=== PATIENT | female | born 1965 | race Caucasian/White ===

== ENCOUNTER 2020-11-04 00:34 | Emergency (ER) | payer OTHER, MEDICAID ==
[~2020-11-04] VITALS: Ht 165.1 cm; Wt 113.4 kg
[~2020-11-04 00:34] MED LIST: OMEP20CA15 PO
[2020-11-04 00:35] VITALS: BP_SYST 145
--- NOTE | 2020-11-04 00:35 | NUR ---
Came in ER ambulatory accompanied by [facility] officer this 55 year old female, [id number], breathing spontaneously at room air, not in distress noted, for medcal clearance, vital signs stable
--- NOTE | 2020-11-04 00:41 | NUR ---
Seen and examined by Dr. Phelps, ER Attending and medcally cleared
[2020-11-04 00:56] VITALS: BP_SYST 145
--- NOTE | 2020-11-04 00:56 | NUR ---
Patient given written and verbal discharge instructions and verbalizes understanding. Patient in stable condition. ID arm band removed. no Rx of given. Patient educated to follow up with PMD. Pain Scale 0/10. Opportunity for questions provided and answered. Medically cleared and accompanied by [facility] officer
== END 2020-11-04 00:56 | disposition home or self-care (01) ==
LOC: SED 00:34
DX: Z02.89 Encounter for other administrative examinations (principal); K21.9 Gastro-esophageal reflux disease without esophagitis; F32.9 Major depressive disorder, single episode, unspecified; F41.9 Anxiety disorder, unspecified; Z79.899 Other long term (current) drug therapy
CPT/HCPCS: 99283